=== PATIENT | female | born 1990 | race Caucasian/White ===

== ENCOUNTER 2017-08-21 15:09 | Emergency (ER) | payer OTHER ==
[~2017-08-21] VITALS: Ht 160 cm; Wt 75.2 kg
[2017-08-21 15:37] LABS: POINT-OF-CARE METER ID UU13113747
[2017-08-21 15:54] LABS: BASOPHIL COUNT 0.1 K/uL (0-0.1); EOSINOPHIL (%) 0.8 % (0-5); EOSINOPHIL COUNT 0.1 K/uL (0-0.3); HEMATOCRIT 36.7 % (36.0-46.0); IMMATURE GRANULOCYTE (%) 0.6 % (0.0-0.7); IMMATURE GRANULOCYTE COUNT 0.1 K/uL; INSTRUMENT ABS NEUTROPHIL CT 13.5 K/uL; LYMPHOCYTE COUNT 1.4 K/uL (1.0-2.8); MCH 25.9 PG (29.0-34.0); MCV 78.6 FL (83-99); MEAN PLAT.VOLUME 10.7 uM^3 (9.5-12.4); MONOCYTE (%) 3.4 % (3-12); MONOCYTE COUNT 0.5 K/uL (0-0.8); NEUTROPHIL (%) 86.3 % (45-76); NEUTROPHIL COUNT 13.5 K/uL (1.8-6.4); PLATELET COUNT 303 K/uL (156-360); RBC DIS.WIDTH-CV 14.3 % (11.8-14.6); RED BLOOD COUNT 4.67 M/uL (3.80-5.20); WHITE BLOOD COUNT 15.6 K/uL (4.1-10.2)
[2017-08-21 16:02] LABS: CHLORIDE 105 mEq/L (99-109); POTASSIUM 3.8 mEq/L (3.7-5.4); SODIUM 138 mEq/L (136-147)
[2017-08-21 16:03] LABS: GLUCOSE 256 mg/dL (70-99)
[2017-08-21 16:05] LABS: ANION GAP 13 MEQ/L (2-14)
[2017-08-21 16:07] LABS: GFR ESTIMATE (CALCULATED) > 59 mL/min/
[2017-08-21 16:08] LABS: UREA NITROGEN (BUN) 16 mg/dL (9-23)
[2017-08-21 16:41] LABS: ADD MIUA? YES; BILIRUBIN NEGATIVE; BLOOD SMALL; COLOR YELLOW ((YELLOW)); GLUCOSE (STRIP) >=500; KETONES NEGATIVE; LEUKOCYTES LARGE; NITRITE NEGATIVE; PROTEIN (STRIP) NEGATIVE; SPECIFIC GRAVITY 1.009 (1.000-1.030); UROBILINOGEN 0.2 MG/DL (0.2-1.0)
[2017-08-21 17:02] LABS: BACTERIA 3+ /HPF; CASTS NONE SEEN /LPF; CRYSTALS NONE SEEN; EPITHELIAL CELLS 2+ /HPF; MUCUS NONE SEEN /LPF; WHITE BLOOD CELLS 30-40 /HPF (0-5)
[2017-08-21] MEDS ORDERED: CIPRO500 MG PO ×2 (17:08→18:10)
[2017-08-21 17:22] LABS: POINT-OF-CARE METER ID UU13113747
[2017-08-21 17:49] VITALS: BP 136/92
== END 2017-08-21 17:55 | disposition home or self-care (01) ==
LOC: EME 15:09
PROVIDERS: Emergency Medicine
DX: E11.649 Type 2 diabetes mellitus with hypoglycemia without coma (principal); N39.0 Urinary tract infection, site not specified; R62.50 Unspecified lack of expected normal physiological development in childhood; Z79.4 Long term (current) use of insulin
CPT/HCPCS: 80048; 81003; 82948; 85025; 87077; 87086; 87186; 99281; 99284